=== PATIENT | male | born 1965 | race Caucasian/White ===

== ENCOUNTER 2017-11-27 08:29 | Emergency (ER) | payer OTHER ==
[~2017-11-27] VITALS: Ht 167.6 cm; Wt 79.4 kg
--- NOTE | 2017-11-27 08:53 | ED GI/GU/ABDOMINAL COMPLAINT ---
History of Present Illness General Chief Complaint: Abdominal Pain/Flank Pain Stated Complaint: LT SIDE ABDOMINAL PAIN Source: patient Exam Limitations: no limitations Vital Signs & Intake/Output Vital Signs & Intake/Output Vital Signs Date Time Temp Pulse Resp B/P B/P Pulse O2 O2 Flow FiO2 Mean Ox Delivery Rate 11/27 1204 97.0 78 22 133/78 99 11/27 1032 97.4 84 20 135/86 99 Room Air 11/27 0832 96.7 68 18 165/93 96 Room Air Room Air Allergies Coded Allergies: No Known Allergies (11/27/17) Triage Note: PT TO WITH SUDDEN ONSET OF LEFT ABD PAIN, DENIES FEVER OR N/V/D. HAS NOT EATEN TODAY. Triage Nurses Notes Reviewed? yes Onset: Abrupt Duration: hour(s): (3) Timing: no prior history Quality/Severity: severe, stabbing Severity Numbers: 10 Location: left lower quadrant Radiation: no radiation Activities at Onset: none Prior Abdominal Problems: none Past Sexual History: Unobtainable at this time Modifying Factors: Worsens With: movement, palpation. HPI: Patient is a 52-year-old male with history of diverticulosis confirmed with colostomy that was performed last year. Patient reports that this morning he started having pain in his left lower abdomen and woke up around 6 AM from it. Pain is sharp and stabbing currently 10 on a 10 and severe. He TOOK 2 aspirin without relief in symptoms. Denies fevers or chills. Positive nausea but no vomiting. Last normal bowel movement was yesterday, able to move his bowels this morning but it was firm. Denies blood in the stool. (Yudelka PAGAN,Rachell) Reconcile Medications Atorvastatin Calcium 20 MG TABLET 1 TAB PO DAILY CHOL (Reported) Ondansetron (Zofran Odt) 4 MG TAB.RAPDIS 1 TAB SL TID PRN nausea Tramadol HCl 50 MG TABLET 1 TAB PO BIDP PRN severe pain (Sin Hernández DO) Past History Travel History Traveled to [place] past 21 day No Medical History Any Pertinent Medical History? see below for history Neurological: NONE EENT: NONE Cardiovascular: hyperlipidemia Respiratory: NONE Gastrointestinal: DIVERTICULOSIS Hepatic: NONE Renal: NONE Musculoskeletal: NONE Psychiatric: NONE Endocrine: NONE Blood Disorders: NONE Cancer(s): NONE HAND NAILER/Reproductive: NONE Surgical History Surgical History: non-contributory Psychosocial History What is your primary language Czech Tobacco Use: Never used ETOH Use: occasional use Illicit Drug Use: denies illicit drug use Family History Hx Contributory? No (Rachell De La Garza) Review of Systems Review of Systems Constitutional: Reports: no symptoms. Comments Review of systems: See HPI, All other systems negative. Constitutional, no chills fever or weight loss HEENT: No visual changes no sore throat no congestion Cardiovascular: No chest pain ,palpitation , orthopnea or ankle swelling Skin, no jaundice no rashes Respiratory: No dyspnea cough sputum or hemoptysis GI: no vomiting : No dysuria No hematuria Muscle skeletal: no back pain, no neck pain, Neurologic: No numbness no confusion, no headaches Psych: No stress anxiety or depression,. Heme/endocrine: No bruising no bleeding no polyuria or polydipsia Immunology: No splenectomy or history of AIDS (Rachell De La Garza) Physical Exam Physical Exam General Appearance: well developed/nourished, alert, awake, mild distress Gastrointestinal: guarding, tenderness, HYPOACTIVE BOWEL SOUNDS THROUGHOUT Comments: Well-developed well-nourished person in no acute distress HEENT: Pupils equally round and reactive to light and accommodation. Nose is atraumatic. Pharynx normal. No swelling or edema. Neck: Supple, no lymphadenopathy, normal range of motion without pain or tenderness Back: Nontender, no CVA tenderness. Cardiovascular: Regular rate and rhythms no murmurs rubs or gallops, normal JVP Respiratory: Chest nontender. No respiratory distress.breath sounds clear to auscultation bilaterally Abdomen: Soft, significant tenderness to palpation in the left lower quadrant with guarding. Positive rebound tenderness, nondistended, no appreciable organomegaly. Normal bowel sounds. No ascites Extremity: No edema Neuro: Alert oriented x3 Skin: No appreciable rash on exposed skin, skin is warm and dry. Psych: Mood and affect is normal, memory and judgment is normal. Core Measures ACS in differential dx? No Sepsis Present: No Sepsis Focused Exam Completed? No (Rachell De La Garza) Progress Differential Diagnosis: KIDNEY STONE, uti, PYELONEPHRITIS, HYDRONEPHROSIS, DIVERTICULITIS, DIVERTICULOSIS, PERFORATED VISCUS, GASTRITIS Plan of Care: Orders Procedure Date/time Status Add-on Test (ER Only) 11/27 1243 Active CULTURE,URINE 11/27 1100 Active BLOOD CULTURE 11/28 851 Active URINALYSIS 11/28 851 Complete PARTIAL THROMBOPLASTIN TIME 11/28 851 Complete PROTHROMBIN TIME 11/28 851 Complete LACTIC ACID 11/28 851 Complete COMPREHENSIVE METABOLIC PANEL 11/28 851 Complete CBC WITHOUT DIFFERENTIAL 11/28 851 Complete Laboratory Tests 11/27/17 1152: Lactic Acid Cancelled 11/27/17 1100: Urine Color YEL, Urine Clarity CLEAR, Urine pH 6.0, Ur Specific [place] 1.025, Urine Protein NEG, Urine Ketones NEG, Urine Nitrite NEG, Urine Bilirubin NEG, Urine Urobilinogen 0.2, Ur Leukocyte Esterase NEG, Ur Microscopic EXAM NOT REQUIRED, Urine Hemoglobin NEG, Urine Glucose NEG 11/27/17 0930: Anion Gap 13, Estimated GFR 45 L, BUN/Creatinine Ratio 18.1, Glucose 150 H, Lactic Acid 2.1, Calcium 9.2, Total Bilirubin 0.4, AST 35, ALT 56, Alkaline Phosphatase 61, Total Protein 7.5, Albumin 4.7, Globulin 2.8, Albumin/Globulin Ratio 1.7, PT 10.6, INR 0.97, APTT 27, CBC w Diff MAN DIFF ORDERED, RBC 4.81, MCV 89.7, MCH 31.0, MCHC 34.5, RDW 12.6, MPV 7.9, Gran % 89.3 H, Lymphocytes % 6.3 L, Monocytes % 4.3, Eosinophils % 0.1, Basophils % 0, Absolute Granulocytes 14.3 H, Absolute Lymphocytes 1.0 L, Absolute Monocytes 0.7 H, Absolute Eosinophils 0, Absolute Basophils 0, Platelet Estimate VERIFIED BY SMEAR, Normocytic RBCs VERIFIED, Normochromic RBCs VERIFIED Microbiology 11/27 1099 URINE ROUT: Urine Culture - RECD 11/27 934 BLOOD: Blood Culture - RECD 11/28 851 BLOOD: Blood Culture - ORD 11/27/2017 9:44:56 AM patient is afebrile, mild distress on exam with significant tenderness to palpation in the left lower quadrant with guarding. Positive history of diverticulosis. 7 onset of symptoms this morning. Concern for perforated viscus versus diverticulitis/nephrolithiasis. Patient medicated with IV fluids and morphine. Patient will go for CT scan of the abdomen. 11/27/2017 11:20:55 AM patient informed of all laboratory results, appears that patient is slightly dehydrated with a creatinine of 1.6 BUN of 26. History of dry skin. So pending results. Patient resting comfortably after 4 mg IV morphine and Zofran. Fluids still infusing. 11/27/2017 12:41:[address] scan shows 3 mm stone in the bladder. [place] likely secondary to stone passing. Patient was seen and evaluated by Dr. Mendieta, patient safer discharge and will follow up outpatient. Patient nontoxic. Educated on signs and symptoms to return. Diagnostic Imaging: Viewed by Me: CT Scan. Discussed w/RAD: CT Scan. Radiology Impression: PATIENT: ROSALIE BUTLER PRESENT AGE: 52 PATIENT ACCOUNT NO: [id number] : 64 LOCATION: [facility] ORDERING PHYSICIAN: Rachell PAGAN SERVICE DATE: 11/27/17 EXAM TYPE: CAT - CT ABD & PELVIS W/O IV CONTRAS CT ABDOMEN AND PELVIS WITHOUT CONTRAST CLINICAL INFORMATION: Left lower quadrant pain. COMPARISON: None available. TECHNIQUE: Multidetector volumetric imaging was performed from the superior aspect of the liver through the pubic symphysis. Sagittal and coronal reformatted images were obtained on the technologist's workstation. FINDINGS: The lung bases are clear. Limited evaluation of the unenhanced liver, spleen, adrenal glands, gallbladder, and pancreas reveals no definite abnormality. There is a 3 mm calculus within the dependent aspect of the bladder on the left side, within or just distal to the intravesicular portion of the left ureterovesicular junction. There is associated moderate left-sided hydronephrosis with left-sided perinephric and proximal periureteral stranding/fluid that is possibly from forniceal rupture. The large and small bowel are normal in caliber without evidence of mechanical obstruction. No focal inflammatory changes adjacent to the large or the small bowel. The appendix is normal. There is no free air and there is no intra- abdominal free fluid. No mesenteric or retroperitoneal adenopathy. The pelvic viscera are normal. No pelvic adenopathy. No free fluid within the pelvis. There are no acute osseous abnormalities. Severe disc volume loss at L5-S1. Degenerative changes involving the right hip joint. Fat-containing inguinal hernias bilaterally. IMPRESSION: - There is a 3 mm calculus within the dependent aspect of the bladder on the left side, within or just distal to the intravesicular portion of the left ureterovesicular junction. There is associated moderate left-sided hydronephrosis with left-sided perinephric and proximal periureteral stranding/fluid that is possibly from forniceal rupture and/or pyelonephritis which can be clinically correlated. - Severe degenerative disc disease at L5-S1. - Bilateral fat-containing inguinal hernias. DICTATED BY: Sin Phelan MD DATE/TIME DICTATED:11/27/171119 COMPUTATIONAL SCIENCES PROFESSOR:MASON DATE/TIME TRANSCRIBED:11/27/171119 CONFIDENTIAL, DO NOT COPY WITHOUT APPROPRIATE AUTHORIZATION. <Electronically signed in Other Vendor System> SIGNED BY: Sin Phelan MD 11/27/17 1134 Initial ED EKG: none (Rachell De La Garza) Departure Departure Time of Disposition: 1206 Disposition: HOME OR SELF CARE Condition: Stable Clinical Impression Primary Impression: Kidney stone Secondary Impressions: Acute kidney injury Referrals: Carlee Waite APRN (PCP/Family) Rolando Mendieta MD Additional Instructions: Follow-up with urology, call today prescription to schedule an appointment. Increase fluids. Take Tylenol as prescribed for any severe pain. Take Zofran help with nausea. Return for worsening symptoms or concerns. Use strainer when urinating to catch stone. Departure Forms: Customer Survey General Discharge Information Prescriptions: Current Visit Scripts Tramadol HCl 1 TAB PO BIDP PRN severe pain #10 TAB Ondansetron (Zofran Odt) 1 TAB SL TID PRN nausea #10 TAB (Rachell De La Garza) PA/VOICE WRITING REPORTER Co-Sign Statement Statement: ED Attending supervision documentation- [] I saw and evaluated the patient. I have also reviewed all the pertinent lab results and diagnostic results. I agree with the findings and the plan of care as documented in the PA's/VOICE WRITING REPORTER's documentation. [X] I have reviewed the ED Record and agree with the PA's/VOICE WRITING REPORTER's documentation. [] Additions or exceptions (if any) to the PAs/VOICE WRITING REPORTER's note and plan are summarized below: [] (Sin Hernández DO)
[2017-11-27 09:38] LABS: ABSOLUTE BASOPHIL COUNT 0 /CUMM (0.0-0.2); ABSOLUTE EOSINOPHIL COUNT 0 /CUMM (0.0-0.7); ABSOLUTE GRANULOCYTE CT 14.3 /CUMM (1.4-6.5); ABSOLUTE MONOCYTE COUNT 0.7 /CUMM (0.10-0.60); BASOPHIL % 0 % (0.0-2.0); EOSINOPHIL % 0.1 % (0-5); GRANULOCYTE % 89.3 % (42.2-75.2); HEMATOCRIT 43.1 % (42-52); MEAN CORPUSCULAR HGB CONC 34.5 G/DL (33.0-37.0); MEAN CORPUSCULAR VOLUME 89.7 FL (80.0-94.0); MEAN PLATELET VOLUME 7.9 FL (7.4-10.4); PLATELET COUNT 213 /CUMM (130-400); RBC DISTRIBUTION WIDTH 12.6 % (11.5-14.5); RED BLOOD CELL CT 4.81 /CUMM (4.70-6.10)
[2017-11-27 09:51] LABS: PT 10.6 SEC (9.4-12.5); PTT 27 SEC (25-37)
--- NOTE | 2017-11-27 11:35 | CT SCAN REPORT ---
CT ABDOMEN AND PELVIS WITHOUT CONTRAST CLINICAL INFORMATION: Left lower quadrant pain. COMPARISON: None available. TECHNIQUE: Multidetector volumetric imaging was performed from the superior aspect of the liver through the pubic symphysis. Sagittal and coronal reformatted images were obtained on the technologist's workstation. FINDINGS: The lung bases are clear. Limited evaluation of the unenhanced liver, spleen, adrenal glands, gallbladder, and pancreas reveals no definite abnormality. There is a 3 mm calculus within the dependent aspect of the bladder on the left side, within or just distal to the intravesicular portion of the left ureterovesicular junction. There is associated moderate left-sided hydronephrosis with left-sided perinephric and proximal periureteral stranding/fluid that is possibly from forniceal rupture. The large and small bowel are normal in caliber without evidence of mechanical obstruction. No focal inflammatory changes adjacent to the large or the small bowel. The appendix is normal. There is no free air and there is no intra-abdominal free fluid. No mesenteric or retroperitoneal adenopathy. The pelvic viscera are normal. No pelvic adenopathy. No free fluid within the pelvis. There are no acute osseous abnormalities. Severe disc volume loss at L5-S1. Degenerative changes involving the right hip joint. Fat-containing inguinal hernias bilaterally. IMPRESSION: - There is a 3 mm calculus within the dependent aspect of the bladder on the left side, within or just distal to the intravesicular portion of the left ureterovesicular junction. There is associated moderate left-sided hydronephrosis with left-sided perinephric and proximal periureteral stranding/fluid that is possibly from forniceal rupture and/or pyelonephritis which can be clinically correlated. - Severe degenerative disc disease at L5-S1. - Bilateral fat-containing inguinal hernias.
[2017-11-27 12:04] VITALS: BP 133/78
[2017-11-27] MEDS ORDERED: ATORVASTATIN CA20 M1 PO (12:08)
[2017-11-27] MEDS ORDERED: TRAMADOL HCL50 M1 PO (12:40)
[2017-11-27] MEDS ORDERED: ZOFRAN ODT4 M1 SL (12:40)
== END 2017-11-27 12:46 ==
LOC: ERH 08:29
PROVIDERS: Physician Assistant
DX: N20.0 Calculus of kidney (principal); N17.9 Acute kidney failure, unspecified
CPT/HCPCS: 74176; 81003; 87040; 87086; J2405; J7040